=== PATIENT | female | born 1955 | race Caucasian/White ===

== ENCOUNTER 2025-07-28 09:53 | Observation (INO) ==
--- NOTE | 2025-07-28 10:41 | Emergency Department Note ---
Impression & Plan Lumbar back pain with radiculopathy affecting right lower extremity, Ambulatory dysfunction, Lumbar herniated disc ED Provider Note CHIEF COMPLAINT: Right low back pain radiating into the right leg x 2 days HISTORY OF PRESENT ILLNESS: Patient is a 70-year-old female with past medical history significant for hypertension, GERD, anxiety and depression, dyslipidemia, ADD, tardive dyskinesia, cognitive impairment, among other chronic medical problems who presents to the emergency department accompanied by her for evaluation of right back and leg pain. Patient states that she has been having pain in the right hip and buttock, that wraps into the right groin and down the right thigh, and radiates up to the right back. She cannot stand upright and has to bend over. Her right leg sabra when she tries to weight- bear. She rates her pain a 4/10 currently. She has tried Bengay, Excedrin Migraine, Tylenol, ice and heat. She is on meloxicam chronically. She denies any trauma, heavy lifting although reports there was a fall but this was over a month ago. She never had pain like this before. She denies any numbness, tingling, paresthesia down the right leg. There is no bowel or bladder incontinence or saddle anesthesia. REVIEW OF SYSTEMS: Review of systems as per HPI. All other systems reviewed were negative. 10 systems reviewed. PMH: External medical records are reviewed and summarized as above/below. See Problem List. SOCIAL HISTORY: Patient lives at home with her spouse. Retired. An uncomfortable appearing 70-year-old female who is awake and alert PHYSICAL EXAM: Vital Signs: Reviewed Nurse's notes. CONSTITUTIONAL: Patient is an uncomfortable appearing 70-year-old female who is awake and alert and restless on the gurney. CARDIOVASCULAR: Regular rate and rhythm. Peripheral pulses easily palpable. RESPIRATORY: Breath sounds equal and clear to auscultation. ABDOMEN: Bowel sounds are present. Abdomen is soft, nontender and nondistended. INTEGUMENTARY: No lesions or rash, normal skin turgor. LYMPH: No lymphadenopathy. SPINE: Examination of the patient's back does not demonstrate any ecchymosis, abrasions or outward signs of trauma. No erythema, increased warmth or induration. Patient has midline discomfort to palpation over the low lumbar spine, primarily on the right. There is no pain over the SI joint or the sciatic notch. She has increased pain with range of motion including rotation and flexion. EXTREMITIES: Lower extremity exam difficult to assess, as patient refuses to fully extend the right leg onto the gurney. She has pain over the right PSIS, and the right SI joint. She has discomfort in the right groin and over the right greater trochanter. Leg lengths appear to be symmetrical. She has discomfort with logroll. Positive right straight leg raise testing. Unable to assess reflexes well in the right lower extremity due to positioning and guarding. Patellar and Achilles reflexes on the left 2+. Normal strength including dorsi-flexion and plantar flexion of the great toes and ankles and flexion and extension of the knees and flexion of the hips. Distal pulses are easily palpable. Sensation light touch is intact over the lower extremities bilaterally. EMERGENCY DEPARTMENT COURSE: The patient was seen and assessed as above. External medical records are reviewed. She presents to the emergency department for evaluation of fairly acute right-sided low back pain with radiculopathy. She is quite uncomfortable on exam, rolling around on the gurney. IV lock was initiated. She was treated with IV Decadron 10 mg, fentanyl 50 mcg, Toradol 15 mg and ODT Zofran. Lumbar spine CT scan was obtained and per my interpretation in addition to diffuse degenerative disc disease and multilevel facet arthrosis, there is a suspected right foraminal disc protrusion at the L4-L5 level, with moderate right lateral recess and right foraminal narrowing. This likely does not correlate with her right lumbar radiculopathy. The patient was reassessed. CT scan findings reviewed with her. She was given morphine 6 mg IV. On reassessment she did appear more comfortable and was amenable to an ambulatory trial, with a walker. Unfortunately, she was not able to safely ambulate due to pain and inability to weight-bear comfortably on the right leg. Additional morphine 4 mg IV and Tylenol 1000 mg ordered. I did discuss admission/observation with the patient and her spouse and she was agreeable. ED case maker reviewed, and a consultation placed with the [facility] hospitalist service. Patient discussed with Dr. Cintron. Baseline laboratory studies ordered for admission, including CBC with differential, CMP and urinalysis. Laboratory studies per my interpretation note no leukocytosis, anemia or significant electrolyte imbalance. No YAMILA or transaminitis. Urine sample not obtained prior to admission. Differential diagnoses considered included compression fracture, spinal stenosis, disc herniation, lumbar strain, among others. Past Med/Surg History Problem List (Updated 07/28/25 @ 18:15 by Consuelo Newell) Lumbar herniated disc (Acute) Lumbar back pain with radiculopathy affecting right lower extremity (Acute) Ambulatory dysfunction (Acute) Lower back pain Lumbar radiculopathy, acute Ataxia ADD (attention deficit disorder) Tardive dyskinesia Tremor Other symptoms and signs involving cognitive functions and awareness Restless Gallstones History of colon polyps Sensorineural hearing loss (SNHL) of both ears Bilateral tinnitus History of skin cancer removed Prediabetes diet controlled Mild cognitive impairment Rosacea Hyperlipidemia Depression Anxiety Arthritis Acid reflux Hard of hearing Hypertension Medical History Nausea and vomiting after administration of anesthetic agent Hiatal hernia Diverticular disease History of COVID-07 Apr 2022 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) Surgical History History of dilatation and curettage H/O tooth extraction implanted tooth removed 11/2022 History of colonoscopy History of endoscopy History of cataract extraction bilat History of lumpectomy of right breast benign Hx of tonsillectomy Family History Sister Breast cancer x2 Heart disease Hypertension Lung cancer Skin cancer Father Colorectal cancer Myocardial infarction Heart disease Stroke Brother Myocardial infarction Heart disease Hypertension Leukemia Brother Acute leukemia Heart disease Mother Heart disease Skin cancer Aunt Stroke paternal Brain cancer paternal Grandmother (Maternal) Breast cancer Family/Other Breast cancer niece Uncle Throat cancer paternal Other No family history of adverse response to anesthesia No family history of bleeding disorder Denies family history of Ovarian cancer Prostate cancer Social History Smoking Status: Never smoker Second Hand Exposure: No; Do You Dip or Chew Tobacco: No; Tobacco Cessation Education Requested by Patient: No Hx Alcohol Use: No Hx Substance Use: No Preferred Language: Yoruba Communication Ability: Effective Visual Impairment: Partially Limited Hearing Ability: Normal Straw Baler Required: No Beliefs That Will Affect Care: Rastafarian Rastafarian Beliefs: Will not affect care, but she is Bahai/Samaritan marital status: Current Living Situation: Spouse current occupational status: retired current occupation: Retired Teacher How many Children do You have: 1 How many Children do You have Comment: 1 boy Feels Safe at Home: Yes Safety Concerns: Feels Safe At This Time Childhood Exposure to Second-Hand Smoke: No Diet: regular Diet Comment: regular caffeine: Yes during the past year weight has: remained stable Dental Care, Regularly: Yes Physical Activity Frequency: 3-4 Times per Week Physical Activity Frequency Comment: stationary bike Seatbelt Use: always Sunscreen Use: Yes Assistive Devices: Glasses and Hearing Aid - Bilateral Assistive Devices Comment: Hearing aids not present Allergies Allergies Allergy/AdvReac Type Severity Reaction Status Date / Time Sulfa (Sulfonamide Allergy Unknown Rash Verified 07/28/25 14:35 Antibiotics) Home Meds Home Medications Medication Instructions Recorded Confirmed omega [id number]-fish oil 300 1 cap PO QAM 06/23/22 07/28/25 mg-1,000 mg capsule (Fish Oil) ekkyhbys-ags-jklco acid 500 1 tab PO QAM 04/26/23 07/28/25 mcg-lycopene 300 mcg-lutein 250 mcg tablet ([employer]) acetaminophen 325 mg tablet 325 mg PO QID PRN Pain 08/28/23 07/28/25 (Tylenol) sertraline 50 mg tablet 50 mg PO QAM 08/28/23 07/28/25 sertraline 100 mg tablet 100 mg PO QAM 08/14/24 07/28/25 ascorbate calcium (vitamin C) 500 500 mg PO DAILY 12/19/24 07/28/25 mg tablet cholecalciferol (vitamin D3) 25 25 mcg PO DAILY 12/19/24 07/28/25 mcg (1,000 unit) capsule ferrous sulfate 325 mg (65 mg 325 mg PO DAILY 12/19/24 07/28/25 iron) tablet (Feosol) vitamin K2 45 mcg capsule 45 mcg PO DAILY 12/19/24 07/28/25 hydroxyzine HCl 25 mg tablet 25 mg PO TID 04/01/25 07/28/25 dextroamphetamine-amphetamine 10 10 mg PO BID 07/03/25 07/28/25 mg tablet buspirone 15 mg tablet 15 mg PO BID 07/28/25 07/28/25 Previous Rx's Medication Instructions Recorded magnesium oxide 400 mg PO QAM #90 caps 03/13/25 omeprazole 20 mg capsule,delayed 20 mg PO QAM #90 caps 05/05/25 release amlodipine 10 mg tablet 10 mg PO HS #90 tabs 06/02/25 meloxicam 15 mg tablet 15 mg PO QAM #90 tabs 06/09/25 rosuvastatin 10 mg tablet 10 mg PO HS 100 days #90 tabs 06/19/25 ropinirole 0.5 mg tablet 0.5 mg PO TID #90 tabs 07/03/25 Results & Data (ED) Vital Signs Vital Signs - 24 hr 07/28/25 10:10 07/28/25 11:18 07/28/25 13:00 Temperature 36.4 C L Temperature Source Temporal Artery Scan Pulse Rate 88 Pulse Rate [Left Finger] 87 89 Pulse Rhythm [Left Finger] Regular Pulse Strength [Left Finger] Normal Respiratory Rate 20 20 16 Respiratory Effort / Characteristics Non-Labored Spontaneous Non-Labored Spontaneous Respiratory Depth Normal Normal Respiratory Pattern Regular Blood Pressure 124/77 Blood Pressure [Right Arm] 143/83 H 134/94 Blood Pressure Mean 92 Blood Pressure Mean [Right Arm] 103 107 Blood Pressure Position [Right Arm] Sitting Pulse Oximetry 100 93 91 Oxygen Delivery Method Room Air Room Air Room Air Sepsis Recent Fever Within 48 Hours No Sepsis New/Unexplained Change in Mental Status N/A Sepsis Action Taken by Nursing No Action Required 07/28/25 13:20 07/28/25 14:00 Temperature Temperature Source Pulse Rate 84 Pulse Rate [Left Finger] 94 H Pulse Rhythm [Left Finger] Pulse Strength [Left Finger] Respiratory Rate 18 Respiratory Effort / Characteristics Non-Labored Spontaneous Respiratory Depth Normal Respiratory Pattern Regular Blood Pressure Blood Pressure [Right Arm] 102/72 Blood Pressure Mean Blood Pressure Mean [Right Arm] 82 Blood Pressure Position [Right Arm] Semi-fowlers Pulse Oximetry 93 Oxygen Delivery Method Room Air Sepsis Recent Fever Within 48 Hours Sepsis New/Unexplained Change in Mental Status Sepsis Action Taken by Intermediate Medications Current Medication List: was personally reviewed by me Laboratory Data Attestation: I reviewed the patient's lab results. 07/28/25 14:12 07/28/25 14:12 Administered Medications Amphetamine/Dextroamphetamine (Dextroamphetamine/Amphetamine Ir 10 Mg Tab) 10 mg PO BID@0800,1500 ZENAIDA Stop: 08/11/25 17:14 Last Admin: 07/28/25 17:25 Dose: Not Given Documented By: DONOVAN Discontinued Medications Dexamethasone Sodium Phosphate (DexamethasonePf 10 Mg/Ml Vial) 10 mg IV NOW ONE Stop: 07/28/25 10:39 Last Admin: 07/28/25 10:56 Dose: 10 mg Documented By: ANT Fentanyl Citrate (Fentanyl Citrate Pf 100 Mcg/2 Ml Vial) 50 mcg IV NOW STA Stop: 07/28/25 10:39 Last Admin: 07/28/25 10:56 Dose: 50 mcg Documented By: ANT Acetaminophen (Ofirmev) 1,000 mg in 100 mls @ 400 mls/hr IV NOW STA Stop: 07/28/25 13:45 Last Infusion: 07/28/25 14:09 Dose: Infused Documented By: Admin: 07/28/25 13:41 Dose: 400 mls/hr Documented By: APRIL Ketorolac Tromethamine (Ketorolac Tromethamine 15 Mg/Ml Vial) 15 mg IV NOW STA Stop: 07/28/25 10:39 Last Admin: 07/28/25 10:55 Dose: 15 mg Documented By: ANT Morphine Sulfate (Morphine Sulfate 10 Mg/Ml Carp/Vial) 6 mg IV NOW STA Stop: 07/28/25 12:27 Last Admin: 07/28/25 12:31 Dose: 6 mg Documented By: JORDAN Morphine Sulfate (Morphine Sulfate 4 Mg/Ml 1 Ml Carp\Vial) 4 mg IV NOW STA Stop: 07/28/25 13:32 Last Admin: 07/28/25 13:38 Dose: 4 mg Documented By: APRIL Ondansetron HCl (Ondansetron 4 Mg Od Tab) 4 mg PO NOW STA Stop: 07/28/25 10:39 Last Admin: 07/28/25 10:56 Dose: 4 mg Documented By: ANT Imaging Data Attestation: I personally reviewed and interpreted this imaging study as follows: Radiologist's Impression: Lumbar Spine CT 07/28/25 10:38 CT OF THE LUMBAR SPINE CLINICAL HISTORY: RIGHT LBP RADIATING INTO RIGHT THIGH COMPARISON STUDY: No previous studies for comparison. TECHNIQUE: Helical axial images of the lumbar spine were obtained. Sagittal and coronal reconstructions were viewed. Automated exposure control was utilized for the study. A dose lowering technique was utilized adhering to the principles of ALARA. FINDINGS: For purposes of numbering on this exam, the L5-S1 disc space is assigned to axial image 311 of 362. Alignment of the lumbar spine is anatomic. Vertebral body heights are maintained. There are no fractures. There are no suspicious osseous lesions. Paravertebral soft tissues are unremarkable. The central canal and neural foramen are suboptimally assessed given CT technique. There is severe disc space narrowing at L5-S1. Moderate multilevel facet arthrosis is present. There are disc bulges at multiple levels. L1-L2: The central canal and neural foramen are patent. L2-L3: The central canal and neural foramen are patent. L3-L4: There is mild disc bulge. There is mild facet arthrosis with ligamentous hypertrophy. There is mild narrowing of the central canal and neural foramen. L4-L5: There is mild disc space narrowing with disc bulge. There is facet arthrosis with ligamentous hypertrophy. There is suspected mild central canal stenosis. A suspected right foraminal disc protrusion is present. There is moderate narrowing of the right lateral recess and right neural foramen. The left neural foramen is patent. L5-S1: There is severe disc space narrowing. Posterior disc osteophyte complex is present. There is facet arthrosis. There is no central canal stenosis. There is mild bilateral neural foraminal stenosis. IMPRESSION: 1. No acute lumbar spine fracture or subluxation. 2. Mild degenerative disc disease and moderate multilevel facet arthrosis within the lumbar spine. Suboptimal evaluation of the central canal and neural foramen given CT technique. No evidence for severe central canal stenosis. 3. Suspected right foraminal disc protrusion at L4-L5 which results in moderate of the right lateral recess and right neural foramen. This could be correlated with right L4/L5 radiculopathy. ACT 112: Negative or not required by law. Electronically signed by: Jorge Santos M.D. 07/28/2025 11:41 AM Discharge Plan Visit Data Chief Complaint: Back Injury/Pain Stated Complaint: BACK/HIP PAIN ED Provider: Ozzie Baig ED Midlevel Provider: Consuelo Newell Discharge Problem: Lumbar back pain with radiculopathy affecting right lower extremity, Ambulatory dysfunction, Lumbar herniated disc Patient Disposition: Admitted As Inpatient Condition: Fair Discharge Instructions Interventions: ED Discharge Assessment Last Done: 07/28/25 15:48
[2025-07-28] MEDS: KETOROLAC TROMETHAMINE 15 MG/ML VIAL IV STA (10:55)
[2025-07-28] MEDS: ONDANSETRON 4 MG OD TAB PO STA (10:56)
[2025-07-28] MEDS: dexAMETHasone**PF** 10 MG/ML VIAL IV ONE (10:56)
--- NOTE | 2025-07-28 11:43 | CT Scan Report ---
CT OF THE LUMBAR SPINE CLINICAL HISTORY: RIGHT LBP RADIATING INTO RIGHT THIGH COMPARISON STUDY: No previous studies for comparison. TECHNIQUE: Helical axial images of the lumbar spine were obtained. Sagittal and coronal reconstruct ions were viewed. Automated exposure control was utilized for the study. A dose lowering technique was utilized adhering to the principles of ALARA. FINDINGS: For purposes of numbering on this exam, the L5-S1 disc space is assigned to axial image 311 of 362. Alignment of the lumbar spine is anatomic. Vertebral body heights are maintained. There are no fractures. There are no suspicious osseous lesions. Paravertebral soft tissues are unremarkable. T he central canal and neural foramen are suboptimally assessed given CT technique. There is severe dis c space narrowing at L5-S1. Moderate multilevel facet arthrosis is present. There are disc bulges at multiple levels. L1-L2: The central canal and neural foramen are patent. L2-L3: The central canal and neural foramen are patent. L3-L4: There is mild disc bulge. There is mild facet arthrosis with ligamentous hypertrophy. There is mild narrowing of the central canal and neural foramen. L4-L5: There is mild disc space narrowing with disc bulge. There is facet arthrosis with ligamentous hypertrophy. There is suspected mild central canal stenosis. A suspected right foraminal disc protrus ion is present. There is moderate narrowing of the right lateral recess and right neural foramen. The left neural foramen is patent. L5-S1: There is severe disc space narrowing. Posterior disc osteophyte complex is present. There is f acet arthrosis. There is no central canal stenosis. There is mild bilateral neural foraminal stenosis . IMPRESSION: 1. No acute lumbar spine fracture or subluxation. 2. Mild degenerative disc disease and moderate multilevel facet arthrosis within the lumbar spine. Villavicencio boptimal evaluation of the central canal and neural foramen given CT technique. No evidence for sever e central canal stenosis. 3. Suspected right foraminal disc protrusion at L4-L5 which results in moderate of the right lateral recess and right neural foramen. This could be correlated with right L4/L5 radiculopathy. ACT 112: Negative or not required by law. Electronically signed by: Jorge Santos M.D. 07/28/2025 11:41 AM
[2025-07-28] MEDS: MoRPHine SULFATE 10 MG/ML CARP/VIAL IV STA (12:31)
--- NOTE | 2025-07-28 13:32 | Emergency Department Note ---
ED Visit Note I was consulted by the Advanced Practice Provider, Katlyn Newell PA-C. I personally made/approved the management plan and take responsibility for the patient management. I performed a substantive portion of the visit. This includes the aspects of: -History/Physical/Personally seeing the patient -MDM .
[2025-07-28] MEDS: MoRPHine SULFATE 4 MG/ML 1 ML CARP\\VIAL IV STA (13:38)
[2025-07-28] MEDS: ACETAMINOPHEN 1,000 MG/100 ML VIAL IV STA (13:41)
--- NOTE | 2025-07-28 14:07 | History & Physical Report ---
Date of Service July 28, 2025 Assessment & Plan (1) Lumbar radiculopathy, acute: (2) Lower back pain: (3) Ambulatory dysfunction: (4) Tardive dyskinesia: Plan This patient is a 70-year-old female with a history of tardive dyskinesia, MCI, ADD, depression/anxiety, GERD, HTN, HLD, who presents with acute onset of right lower back pain radiating down the right lower extremity to the right thigh/knee that came on 3 days ago and got much worse in the last day. She has not been able to stand upright. Bending over makes it better. Her right lower extremity has been buckling when she tries to weight-bear but she is able to move the leg. At home she tried Bengay, Excedrin Migraine, Tylenol, ice, and heat. She takes meloxicam chronically anyway. She did have a fall over 1 month ago. No bowel or bladder issues, no numbness tingling or paresthesias down the right lower e xtremity. In the ED, she received IV Decadron, IV fentanyl, IV Toradol, and IV morphine as well as IV Tylenol and Zofran for nausea. She was still unable to ambulate after this pain control and will be admitted for intractable lumbar radiculopathy pain with ambulatory dysfunction. #Acute lumbar radiculopathy/intractable right sided lower back pain/ambulatory dysfunction-failed outpatient treatment and requiring multiple different pain medications in the ED without improvement thus far. CT lumbar spine with HNP L4-L5 which could be the cause of her symptoms - Admit to medical/surgical unit - Continue IV Decadron 6 mg IV 3 times daily - Continue Tylenol 1000 mg p.o. 3 times daily scheduled, home meloxicam 15 mg p.o. daily, and add IV Dilaudid for breakthrough pain - Zofran as needed for nausea and continue PPI while on NSAIDs and steroids for GI protection - Consult orthopedic spine surgery for further evaluation and consider getting MRI lumbar spine if needed - PT/OT consults to be placed to evaluate ambulatory dysfunction #Tardive dyskinesia no acute issues, follows with neurology - Continue home ropinirole #Depression/anxiety/ADD/MCI-has evaluation planned for neuropsychology 6 months from now. Follows with psychiatry - Continue home BuSpar, hydroxyzine, sertraline, and Adderall #HTN/HLD-no acute issues - Continue home amlodipine, rosuvastatin, and hold home fish oil, co-Q10 #GERD-no acute issues - Continue PPI DVT prophylaxis-SCDs Disposition-admit to medical/surgical floor History of Present Illness Chief Complaint: Back pain/leg pain Primary Care Provider: BETHANY Li This patient is a 70-year-old female with a history of tardive dyskinesia, MCI, ADD, depression/anxiety, GERD, HTN, HLD, who presents with acute onset of right lower back pain radiating down the right lower extremity to the right thigh/knee that came on 3 days ago and got much worse in the last day. She has not been able to stand upright. Bending over makes it better. Her right lower extremity has been buckling when she tries to weight-bear but she is able to move the leg. At home she tried Bengay, Excedrin Migraine, Tylenol, ice, and heat. She takes meloxicam chronically anyway. She did have a fall over 1 month ago. No bowel or bladder issues, no numbness tingling or paresthesias down the right lower extremity. In the ED, she received IV Decadron, IV fentanyl, IV Toradol, and IV morphine as well as IV Tylenol and Zofran for nausea. She was still unable to ambulate after this pain control and will be admitted for intractable lumbar radiculopathy pain with ambulatory dysfunction. Allergies Allergy/AdvReac Type Severity Reaction Status Date / Time Sulfa (Sulfonamide Allergy Unknown Rash Verified 07/28/25 14:35 Antibiotics) Home Medications Medication Instructions Recorded Confirmed Type omega 9-dgm-kin-fish oil 300 1 cap PO QAM 06/23/22 07/28/25 History mg-1,000 mg capsule (Fish Oil) bsfhygzq-afk-kiwtp acid 500 1 tab PO QAM 04/26/23 07/28/25 History mcg-lycopene 300 mcg-lutein 250 mcg tablet ([employer]) acetaminophen 325 mg tablet 325 mg PO QID PRN Pain 08/28/23 07/28/25 History (Tylenol) sertraline 50 mg tablet 50 mg PO QAM 08/28/23 07/28/25 History sertraline 100 mg tablet 100 mg PO QAM 08/14/24 07/28/25 History ascorbate calcium (vitamin C) 500 500 mg PO DAILY 12/19/24 07/28/25 History mg tablet cholecalciferol (vitamin D3) 25 25 mcg PO DAILY 12/19/24 07/28/25 History mcg (1,000 unit) capsule ferrous sulfate 325 mg (65 mg 325 mg PO DAILY 12/19/24 07/28/25 History iron) tablet (Feosol) vitamin K2 45 mcg capsule 45 mcg PO DAILY 12/19/24 07/28/25 History magnesium oxide 400 mg PO QAM #90 caps 03/13/25 07/28/25 Rx hydroxyzine HCl 25 mg tablet 25 mg PO TID 04/01/25 07/28/25 History omeprazole 20 mg capsule,delayed 20 mg PO QAM #90 caps 05/05/25 07/28/25 Rx release amlodipine 10 mg tablet 10 mg PO HS #90 tabs 06/02/25 07/28/25 Rx meloxicam 15 mg tablet 15 mg PO QAM #90 tabs 06/09/25 07/28/25 Rx rosuvastatin 10 mg tablet 10 mg PO HS 100 days #90 tabs 06/19/25 07/28/25 Rx dextroamphetamine-amphetamine 10 10 mg PO BID 07/03/25 07/28/25 History mg tablet ropinirole 0.5 mg tablet 0.5 mg PO TID #90 tabs 07/03/25 07/28/25 Rx buspirone 15 mg tablet 15 mg PO BID 07/28/25 07/28/25 History Past Med/Surg History Problem List (Updated 07/28/25 @ 13:59 by Alexia Cintron MD) Ambulatory dysfunction Lower back pain Lumbar radiculopathy, acute Ataxia ADD (attention deficit disorder) Tardive dyskinesia Tremor Other symptoms and signs involving cognitive functions and awareness Restless Gallstones History of colon polyps Sensorineural hearing loss (SNHL) of both ears Bilateral tinnitus History of skin cancer removed Prediabetes diet controlled Mild cognitive impairment Rosacea Hyperlipidemia Depression Anxiety Arthritis Acid reflux Hard of hearing Hypertension Medical History Nausea and vomiting after administration of anesthetic agent Hiatal hernia Diverticular disease History of COVID-07 Apr 2022 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) Surgical History History of dilatation and curettage H/O tooth extraction implanted tooth removed 11/2022 History of colonoscopy History of endoscopy History of cataract extraction bilat History of lumpectomy of right breast benign Hx of tonsillectomy Family History Sister Breast cancer x2 Heart disease Hypertension Lung cancer Skin cancer Father Colorectal cancer Myocardial infarction Heart disease Stroke Brother Myocardial infarction Heart disease Hypertension Leukemia Brother Acute leukemia Heart disease Mother Heart disease Skin cancer Aunt Stroke paternal Brain cancer paternal Grandmother (Maternal) Breast cancer Family/Other Breast cancer niece Uncle Throat cancer paternal Other No family history of adverse response to anesthesia No family history of bleeding disorder Denies family history of Ovarian cancer Prostate cancer Social History Smoking Status: Never smoker Second Hand Exposure: No; Do You Dip or Chew Tobacco: No; Hx Alcohol Use: No Hx Substance Use: No Preferred Language: Chilean Communication Ability: Effective Visual Impairment: Partially Limited Hearing Ability: Normal Solar Project Coordination Specialist Required: No Beliefs That Will Affect Care: None marital status: Current Living Situation: Spouse current occupational status: retired current occupation: Retired Teacher How many Children do You have: 1 How many Children do You have Comment: 1 boy Feels Safe at Home: Yes Childhood Exposure to Second-Hand Smoke: No Diet: regular Diet Comment: regular caffeine: Yes during the past year weight has: remained stable Dental Care, Regularly: Yes Physical Activity Frequency: 3-4 Times per Week Physical Activity Frequency Comment: stationary bike Seatbelt Use: always Sunscreen Use: Yes Assistive Devices: Glasses and Hearing Aid - Bilateral Review of Systems Review of Systems: All systems reviewed & are unremarkable except as noted in HPI & below She denies fevers or chills, no headaches or lightheadedness, no chest pain or shortness of breath, no nausea/vomiting, no abdominal pain, no constipation or diarrhea Physical Exam Constitutional: WD/WN, vitals as above Eyes: PERRL, conjunctivae normal, anicteric sclerae ENMT: external ear and nose normal, oropharynx normal Neck: trachea midline, no thyromegaly Respiratory: normal respiratory effort, lungs clear to auscultation Cardiovascular: RRR, no murmur, no edema Chest (Breasts): Chest: normal inspection of chest Gastrointestinal (Abdomen): normal bowel sounds, soft, nontender, no hepatosplenomegaly Musculoskeletal: Extremities: extremities normal to inspection; no cyanosis and no clubbing Skin: no rashes, warm and dry Neurologic: moves all extremities and awake; no focal motor deficits Motor/Sensory: + abnormal movement (Has frequent jerking movements of upper and lower extremities and head) Negative straight leg raise on the right 5/5 strength throughout bilateral lower extremities DTR absent right patella and 2+ on left patellar Sensation intact to light touch throughout lower extremities bilaterally Psychiatric: A+Ox3, euthymic affect Lymphatic: no lymphedema Results & Data Results & Data Vital Signs (Past 12 Hours) Vital Signs Temp Pulse Pulse Resp BP BP Pulse Ox 07/28/25 13:20 84 07/28/25 13:00 89 16 134/94 91 07/28/25 11:18 87 20 143/83 H 93 07/28/25 10:10 36.4 C L 88 20 124/77 100 O2 Del Method 07/28/25 13:20 07/28/25 13:00 Room Air 07/28/25 11:18 Room Air 07/28/25 10:10 Room Air Laboratory Results CBC, BMP, LFTs reviewed Diagnostic Findings Lumbar Spine CT 07/28/25 10:38 CT OF THE LUMBAR SPINE CLINICAL HISTORY: RIGHT LBP RADIATING INTO RIGHT THIGH COMPARISON STUDY: No previous studies for comparison. TECHNIQUE: Helical axial images of the lumbar spine were obtained. Sagittal and coronal reconstructions were viewed. Automated exposure control was utilized for the study. A dose lowering technique was utilized adhering to the principles of ALARA. FINDINGS: For purposes of numbering on this exam, the L5-S1 disc space is assigned to axial image 311 of 362. Alignment of the lumbar spine is anatomic. Vertebral body heights are maintained. There are no fractures. There are no suspicious osseous lesions. Paravertebral soft tissues are unremarkable. The central canal and neural foramen are suboptimally assessed given CT technique. There is severe disc space narrowing at L5-S1. Moderate multilevel facet arthrosis is present. There are disc bulges at multiple levels. L1-L2: The central canal and neural foramen are patent. L2-L3: The central canal and neural foramen are patent. L3-L4: There is mild disc bulge. There is mild facet arthrosis with ligamentous hypertrophy. There is mild narrowing of the central canal and neural foramen. L4-L5: There is mild disc space narrowing with disc bulge. There is facet arthrosis with ligamentous hypertrophy. There is suspected mild central canal stenosis. A suspected right foraminal disc protrusion is present. There is moderate narrowing of the right lateral recess and right neural foramen. The left neural foramen is patent. L5-S1: There is severe disc space narrowing. Posterior disc osteophyte complex is present. There is facet arthrosis. There is no central canal stenosis. There is mild bilateral neural foraminal stenosis. IMPRESSION: 1. No acute lumbar spine fracture or subluxation. 2. Mild degenerative disc disease and moderate multilevel facet arthrosis within the lumbar spine. Suboptimal evaluation of the central canal and neural foramen given CT technique. No evidence for severe central canal stenosis. 3. Suspected right foraminal disc protrusion at L4-L5 which results in moderate of the right lateral recess and right neural foramen. This could be correlated with right L4/L5 radiculopathy. Code Status & VTE Plan Code Status DNR/DNI VTE Prophylaxis Plan VTE Prophylaxis will be ordered: Yes PG Care Time/CCT Total # of Minutes Spent Total Time Spent with Patient: Total time spent is greater than 50% in coordination of care (as documented) at patient's floor/unit and/or counseling patient: Coding Level of Care Code 93981 INT INP/OBS CARE 3/75MIN Diagnoses Lumbar radiculopathy, acute M54.16 Lower back pain M54.50 Ambulatory dysfunction R26.2 Tardive dyskinesia G24.01
[2025-07-28 14:36] LABS: Hematocrit (blood only) 42.5 % (37.0-47.0); Hemoglobin 14.7 g/dl (12.0-16.0); Immature Granulocytes # (auto) 0.03 K/uL (0.01-0.20); Immature Granulocytes % (auto) 0.3 %; Mean Corpuscular Hemoglobin 30.5 pg (25.0-34.0); Mean Corpuscular Volume 88.2 fL (80.0-100.0); Platelet Count 299 K/uL (130-400); RDW Standard Deviation 42.5 fL (36.4-46.3); Red Blood Count 4.82 M/uL (4.20-5.40); White Blood Count 9.36 K/ul (4.8-10.8)
[2025-07-28 14:46] LABS: Alanine Aminotransferase 29.0 U/L (7-52); Albumin Globulin Ratio 1.7 (0.9-2); Albumin Level 4.3 gm/dl (3.4-5.0); Alkaline Phosphatase 90.0 U/L (34-104); Anion Gap 8.0 (3-11); Bilirubin,Total 0.6 mg/dl (0.2-1.0); Blood Urea Nitrogen 11.0 mg/dl (6-23); Calcium 9.3 mg/dl (8.6-10.3); Carbon Dioxide 23.0 mmol/L (21-32); Chloride 107.0 mmol/L (98-107); Creatinine Clr Calc Pharmacy 66.0 ml/min; Globulin 2.6 gm/dl (2.5-4.0); Glucose 128.0 mg/dl (70-99(Fasting)); Potassium 4.2 mmol/L (3.5-5.1); Sodium 138.0 mmol/L (136-145); Total Protein 6.9 gm/dl (6.0-8.3)
[2025-07-28] MEDS ORDERED: ONDANSETRON INJ 2 MG/ML 2 ML VIAL IV PRN (15:47)
[2025-07-28] MEDS ORDERED: HYDROmorphone INJ 0.5 MG/0.5 ML SYR IV PRN (15:47)
[2025-07-28] MEDS ORDERED: dexAMETHasone 6 MG in SYRINGE 0 ML IV SCH (16:00)
[2025-07-28] MEDS: DEXTROAMPHETAMINE/AMPHETAMINE IR 10 MG TAB PO SCH (17:25)
[2025-07-28] MEDS: dexAMETHasone 6 MG in SYRINGE 0 ML IV SCH (18:27)
[2025-07-28] MEDS: HYDROmorphone INJ 0.5 MG/0.5 ML SYR IV PRN (18:27)
[2025-07-28] MEDS: ACETAMINOPHEN 500 MG TAB PO SCH (20:50)
[2025-07-28] MEDS: busPIRone 5 MG TAB PO SCH (20:50)
[2025-07-28] MEDS: ROSUVASTATIN CALCIUM 10 MG TAB PO SCH (20:50)
[2025-07-28 22:49] LABS: Appearance Urine Clear (Clear); Glucose Urine UA Negative (Negative)
[2025-07-28 23:00] LABS: Bacteria Urine Automated None Seen (None Seen); Cast Urine Automated 0-2 /lpf (0-2); Epithelial Cell Urine Auto 0-2 /hpf (0-2); RBC Urine Automated 0-2 /hpf (0-2)
[2025-07-29] MEDS: MELOXICAM 7.5 MG TAB PO SCH (08:13)
[2025-07-29] MEDS: MAGNESIUM OXIDE 400 MG TAB PO SCH (08:13)
[2025-07-29] MEDS: SERTRALINE HCL 50 MG TABLET PO SCH (08:14)
[2025-07-29] MEDS: SERTRALINE HCL 100 MG TABLET PO SCH (08:14)
--- NOTE | 2025-07-29 14:13 | Hospitalist Progress Note ---
Date of Service July 29, 2025 Assessment & Plan (1) Lumbar radiculopathy, acute: (2) Lower back pain: (3) Ambulatory dysfunction: (4) Tardive dyskinesia: Plan This patient is a 70-year-old female with a history of tardive dyskinesia, MCI, ADD, depression/anxiety, GERD, HTN, HLD, who is admitted with intractable pain from acute lumbar radiculopathy pain with ambulatory dysfunction. #Acute lumbar radiculopathy/intractable right sided lower back pain/ambulatory dysfunction-failed outpatient treatment and continues to be without improvement thus far despite parenteral steroids and opioids, NSAIDs, APAP. CT lumbar spine with HNP L4-L5 which could be the cause of her symptoms. MRI L-spine and Ortho SPine consult pending - Continue IV Decadron 6 mg IV 3 times daily - Continue Tylenol 1000 mg p.o. 3 times daily scheduled, home meloxicam 15 mg p .o. daily, and IV Dilaudid for breakthrough pain; add on oxycodon e5-10mg po q4h prn mod-severe pain -considered gabapentin but may worsen her tardive dyskinesia - Zofran as needed for nausea and continue PPI while on NSAIDs and steroids for GI protection - Consult orthopedic spine surgery for further evaluation pending - PT/OT consults to be placed to evaluate ambulatory dysfunction #Tardive dyskinesia no acute issues, follows with neurology - Continue home ropinirole #Depression/anxiety/ADD/MCI-has evaluation planned for neuropsychology 6 months from now. Follows with psychiatry - Continue home BuSpar, hydroxyzine, sertraline, and Adderall #HTN/HLD-no acute issues - Continue home amlodipine, rosuvastatin, and hold home fish oil, co-Q10 #GERD-no acute issues - Continue PPI DVT prophylaxis-SCDs Disposition-continued stay on medical/surgical floor Admission and Anticipated Discharge Date Admission Date: July 28, 2025 Subjective Pt continues to have severe pain down RLE to the knee, mostly worse with lying flat for MRI earlier and better with sitting up. Physical Exam Constitutional: WD/WN, vitals as above Neck: trachea midline, no thyromegaly Respiratory: normal respiratory effort, lungs clear to auscultation Cardiovascular: RRR, no murmur, no edema Musculoskeletal: Extremities: extremities normal to inspection; no cyanosis and no clubbing Skin: no rashes, warm and dry Neurologic: moves all extremities and awake; no focal motor deficits Motor/Sensory: + abnormal movement (Has frequent jerking movements of upper and lower extremities and head) Psychiatric: A+Ox3, euthymic affect Lymphatic: no lymphedema Results & Data Results & Data Vital Signs (Past 12 Hours) Vital Signs Temp Pulse Resp BP Pulse Ox O2 Del Method 07/29/25 07:43 37.0 C 98 H 18 115/63 92 Room Air Laboratory Results Ua reviewed Diagnostic Findings MRI Lumbar spine reviewed pictures but Rad read not done yet PG Care Time/CCT Total # of Minutes Spent Total Time Spent with Patient: Total time spent is greater than 50% in coordination of care (as documented) at patient's floor/unit and/or counseling patient: Coding Level of Care Code 78291 SUB INP/OBS CARE 2/35MIN Diagnoses Lumbar radiculopathy, acute M54.16 Lower back pain M54.50 Ambulatory dysfunction R26.2 Tardive dyskinesia G24.01
--- NOTE | 2025-07-29 14:16 | Magnetic Resonance Report ---
MR lumbar spine wo con CLINICAL HISTORY: 70 years-old Female with back and leg pain. Chronic low back pain COMPARISON: CT lumbar spine 07/28/2025 TECHNIQUE: Multiplanar, multi sequence MRI of the lumbar spine was performed without intravenous cont rast. FINDINGS: Motion degraded exam. The lumbar alignment is normal. The vertebral body heights are normal. There is no T1 fracture line or marrow replacement process. The conus terminates at L1-L2. The visualized spinal cord and cauda equina are normal. There is no paraspinal edema, mass, or prevertebral fluid collection. Colonic diverticulosis. Mostly mild multilevel intervertebral disc space narrowing and s pondylotic spurring with mild to moderate facet arthrosis. T12-L1: No central canal or neural foraminal stenosis. L1-L2: No central canal or neural foraminal stenosis. L2-L3: No central canal or neural foraminal stenosis. L3-L4: Mild intervertebral disc space narrowing and circumferential annular disc bulge and mild spon dylitic spurring. Ligamentum flavum thickening with trace facet effusions and mild to moderate facet arthrosis. Mild central canal stenosis with AP dimension of the thecal sac measuring 9 mm. The right neural foramen is patent. Mild left neural foraminal stenosis. L4-L5: Mild intervertebral disc space narrowing with circumferential annular disc bulge and mild spo ndylitic spurring. Ligament of thickening with moderate facet arthrosis. 8 x 5 x 7 mm ill-defined T1 and T2 hypointense structure within the right neural foramen, image 20 series 7 with superior migrati on on image 6 series 2 is suggestive of a disc extrusion contributing to cause moderate right foramin al narrowing. Mild central canal stenosis, AP dimension of the thecal sac measuring 9 mm. Mild left n eural foraminal narrowing. L5-S1: Moderate intervertebral disc space narrowing with small circumferential disc osteophyte compl ex and moderate facet arthrosis. 1.3 x 0.4 cm central disc osteophyte complex on image 29 series 7. M ild bilateral neural foraminal stenosis. IMPRESSION: 1. Motion degraded exam without acute fracture or bone marrow edema. 2. Probable disc extrusion within the right neural foramen at L4-L5, correlating with the abnormality seen on comparison CT causing moderate associated foraminal stenosis. 3. Mild central canal stenosis at L3-L4 and L4-L5. ACT 112: Negative or not required by law. The above report was generated using voice recognition software. It may contain grammatical, syntax o r spelling errors. Electronically signed by: Morgan Portillo M.D. 07/29/2025 2:14 PM
--- NOTE | 2025-07-30 09:29 | Consultation ---
Date of Consultation July 30, 2025 Assessment & Plan (1) Lumbar herniated disc: Dr. Rodríguez has reviewed imaging as well as treatment plan. We are hoping to manage this conservatively and avoid any type of surgical intervention. Patient agrees with this. We will therefore consult pain management to discuss pursuing injection at the L4-5 on the right level. All questions were answered with the patient and her . History of Present Illness Attending Physician: Alexia Cintron MD History of Present Illness Kasia is a pleasant 70-year-old female who started with an acute onset of back and right leg pain on July 27. No specific accident, trauma, fall. She was unable to weight-bear because of the pain. Typically she ambulates independently. She presented to the ER on July 28 with for subsequent admission and pain control. She still reports pain to be a 10 out of 10. And involves the right lumbar region down the buttock, groin, anterior thigh and numbness distally to the knee. Left leg is asymptomatic. All positions are provocative of her pain. Nothing is really comfortable. Denies bowel or bladder dysfunction. Denies perineum numbness. Allergies Allergy/AdvReac Type Severity Reaction Status Date / Time Sulfa (Sulfonamide Allergy Unknown Rash Verified 07/28/25 14:35 Antibiotics) Home Medications Medication Instructions Recorded Confirmed Type omega 0-lfh-fas-fish oil 300 1 cap PO QAM 06/23/22 07/28/25 History mg-1,000 mg capsule (Fish Oil) obgykrbg-gyf-hvwiy acid 500 1 tab PO QAM 04/26/23 07/28/25 History mcg-lycopene 300 mcg-lutein 250 mcg tablet (S[employer]) acetaminophen 325 mg tablet 325 mg PO QID PRN Pain 08/28/23 07/28/25 History (Tylenol) sertraline 50 mg tablet 50 mg PO QAM 08/28/23 07/28/25 History sertraline 100 mg tablet 100 mg PO QAM 08/14/24 07/28/25 History ascorbate calcium (vitamin C) 500 500 mg PO DAILY 12/19/24 07/28/25 History mg tablet cholecalciferol (vitamin D3) 25 25 mcg PO DAILY 12/19/24 07/28/25 History mcg (1,000 unit) capsule ferrous sulfate 325 mg (65 mg 325 mg PO DAILY 12/19/24 07/28/25 History iron) tablet (Feosol) vitamin K2 45 mcg capsule 45 mcg PO DAILY 12/19/24 07/28/25 History magnesium oxide 400 mg PO QAM #90 caps 03/13/25 07/28/25 Rx hydroxyzine HCl 25 mg tablet 25 mg PO TID 04/01/25 07/28/25 History omeprazole 20 mg capsule,delayed 20 mg PO QAM #90 caps 05/05/25 07/28/25 Rx release amlodipine 10 mg tablet 10 mg PO HS #90 tabs 06/02/25 07/28/25 Rx meloxicam 15 mg tablet 15 mg PO QAM #90 tabs 06/09/25 07/28/25 Rx rosuvastatin 10 mg tablet 10 mg PO HS 100 days #90 tabs 06/19/25 07/28/25 Rx dextroamphetamine-amphetamine 10 10 mg PO BID 07/03/25 07/28/25 History mg tablet ropinirole 0.5 mg tablet 0.5 mg PO TID #90 tabs 07/03/25 07/28/25 Rx buspirone 15 mg tablet 15 mg PO BID 07/28/25 07/28/25 History Patient History Medical History Nausea and vomiting after administration of anesthetic agent Hiatal hernia Diverticular disease History of COVID-07 Apr 2022 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) Surgical History History of dilatation and curettage H/O tooth extraction implanted tooth removed 11/2022 History of colonoscopy History of endoscopy History of cataract extraction bilat History of lumpectomy of right breast benign Hx of tonsillectomy Family History Sister Breast cancer x2 Heart disease Hypertension Lung cancer Skin cancer Father Colorectal cancer Myocardial infarction Heart disease Stroke Brother Myocardial infarction Heart disease Hypertension Leukemia Brother Acute leukemia Heart disease Mother Heart disease Skin cancer Aunt Stroke paternal Brain cancer paternal Grandmother (Maternal) Breast cancer Family/Other Breast cancer niece Uncle Throat cancer paternal Other No family history of adverse response to anesthesia No family history of bleeding disorder Denies family history of Ovarian cancer Prostate cancer Social History Smoking Status: Never smoker Second Hand Exposure: No; Do You Dip or Chew Tobacco: No; Tobacco Cessation Education Requested by Patient: No Hx Alcohol Use: No Hx Substance Use: No Preferred Language: American Communication Ability: Effective Visual Impairment: Partially Limited Hearing Ability: Normal Reverberatory Skimmer Required: No Beliefs That Will Affect Care: Sabianist Sabianist Beliefs: Will not affect care, but she is Orthodox/Mandaeism marital status: Current Living Situation: Spouse current occupational status: retired current occupation: Retired Teacher How many Children do You have: 1 How many Children do You have Comment: 1 boy Feels Safe at Home: Yes Safety Concerns: Feels Safe At This Time Childhood Exposure to Second-Hand Smoke: No Diet: regular Diet Comment: regular caffeine: Yes during the past year weight has: remained stable Dental Care, Regularly: Yes Physical Activity Frequency: 3-4 Times per Week Physical Activity Frequency Comment: stationary bike Seatbelt Use: always Sunscreen Use: Yes Assistive Devices: None Assistive Devices Comment: Hearing aids not present Review of Systems Review of Systems: All systems reviewed & are unremarkable except as noted in HPI & below Physical Exam Physical Exam: She is sitting on the edge of the bed eating breakfast in no acute distress cooperative with exam Seen in conjunction with her she is nontender to portion of the midline lumbar spine. Nontender over the sciatic notch regions bilaterally Nontender over the greater trochanter regions to palpation bilaterally Negative logrolling bilaterally She has breakaway weakness over the right quadricep otherwise 5 5 bilateral EHL, dorsiflexion, plantarflexion, hamstrings, hip flexors Negative straight leg raising bilaterally Results & Data Vital Signs (Past 12 Hours) Vital Signs Temp Pulse Resp BP Pulse Ox O2 Del Method O2 Flow Rate 07/30/25 07:08 36.9 C 98 H 18 114/75 97 Room Air 07/29/25 23:07 36.7 C 95 H 18 103/61 94 Nasal Cannula 2.0 Diagnostic Findings [facility] JOSEPH Logan [phone] Magnetic Resonance Report Patient: KASIA HOWELL Admit Date: 07/28/25 MR#: [id number] Address1: [address] [place] [address] Acct ID:[id number] Address2: Date: 1955 [facility] Zip: [place] [address] Age: 70 Location: 3N Sex: F Room/Bed: [facility] Att Phy: Alexia Cintron MD Diagnosis: ACUTE LUMBAR RADICULOPATHY Maddie Phy: Jeremie Young CRNP Service Date: 07/29/25 Fam Phy: Interpreting Phy: Morgan PortilloAdmit Phy: Alexia Cintron MD Ordering Phy: Rusty Rodríguez D.O. cc: ~ MR lumbar spine wo con CLINICAL HISTORY: 70 years-old Female with back and leg pain. Chronic low back pain COMPARISON: CT lumbar spine 07/28/2025 TECHNIQUE: Multiplanar, multi sequence MRI of the lumbar spine was performed without intravenous contrast. FINDINGS: Motion degraded exam. The lumbar alignment is normal. The vertebral body heights are normal. There is no T1 fracture line or marrow replacement process. The conus terminates at L1-L2. The visualized spinal cord and cauda equina are normal. There is no paraspinal edema, mass, or prevertebral fluid collection. Colonic diverticulosis. Mostly mild multilevel intervertebral disc space narrowing and spondylotic spurring with mild to moderate facet arthrosis. T12-L1: No central canal or neural foraminal stenosis. L1-L2: No central canal or neural foraminal stenosis. L2-L3: No central canal or neural foraminal stenosis. L3-L4: Mild intervertebral disc space narrowing and circumferential annular disc bulge and mild spondylitic spurring. Ligamentum flavum thickening with trace facet effusions and mild to moderate facet arthrosis. Mild central canal stenosis with AP dimension of the thecal sac measuring 9 mm. The right neural foramen is patent. Mild left neural foraminal stenosis. L4-L5: Mild intervertebral disc space narrowing with circumferential annular disc bulge and mild spondylitic spurring. Ligament of thickening with moderate facet arthrosis. 8 x 5 x 7 mm ill-defined T1 and T2 hypointense structure within the right neural foramen, image 20 series 7 with superior migration on image 6 series 2 is suggestive of a disc extrusion contributing to cause moderate right foraminal narrowing. Mild central canal stenosis, AP dimension of the thecal sac measuring 9 mm. Mild left neural foraminal narrowing. L5-S1: Moderate intervertebral disc space narrowing with small circumferential disc osteophyte complex and moderate facet arthrosis. 1.3 x 0.4 cm central disc osteophyte complex on image 29 series 7. Mild bilateral neural foraminal stenosis. IMPRESSION: 1. Motion degraded exam without acute fracture or bone marrow edema. 2. Probable disc extrusion within the right neural foramen at L4-L5, correlating with the abnormality seen on comparison CT causing moderate associated foraminal stenosis. 3. Mild central canal stenosis at L3-L4 and L4-L5. ACT 112: Negative or not required by law. The above report was generated using voice recognition software. It may contain grammatical, syntax or spelling errors. Electronically signed by: Morgan Portillo M.D. 07/29/2025 2:14 PM Dictated: 07/29/25 1406 Transcribed: 07/29/25 1406 [place], [place] [phone] CT Scan Report Patient: KASIA HOWELL Admit Date: 07/28/25 MR#: [id number] Address1: [address] [place] [address] Acct ID:[id number] Address2: Date: 1955 [facility] Zip: [place] [address] Age: 70 Location: ED Sex: F Room/Bed: Att Phy: Diagnosis: BACK/HIP PAIN Maddie Phy: Jeremie Young CRNP Service Date: 07/28/25 [facility] Phy: Interpreting Phy: Jorge Santos MDAdmit Phy: Ordering Phy: Brigette Newell PA cc: ~ CT OF THE LUMBAR SPINE CLINICAL HISTORY: RIGHT LBP RADIATING INTO RIGHT THIGH COMPARISON STUDY: No previous studies for comparison. TECHNIQUE: Helical axial images of the lumbar spine were obtained. Sagittal and coronal reconstructions were viewed. Automated exposure control was utilized for the study. A dose lowering technique was utilized adhering to the principles of ALARA. FINDINGS: For purposes of numbering on this exam, the L5-S1 disc space is assigned to axial image 311 of 362. Alignment of the lumbar spine is anatomic. Vertebral body heights are maintained. There are no fractures. There are no suspicious osseous lesions. Paravertebral soft tissues are unremarkable. The central canal and neural foramen are suboptimally assessed given CT technique. There is severe disc space narrowing at L5-S1. Moderate multilevel facet arthrosis is present. There are disc bulges at multiple levels. L1-L2: The central canal and neural foramen are patent. L2-L3: The central canal and neural foramen are patent. L3-L4: There is mild disc bulge. There is mild facet arthrosis with ligamentous hypertrophy. There is mild narrowing of the central canal and neural foramen. L4-L5: There is mild disc space narrowing with disc bulge. There is facet arthrosis with ligamentous hypertrophy. There is suspected mild central canal stenosis. A suspected right foraminal disc protrusion is present. There is moderate narrowing of the right lateral recess and right neural foramen. The left neural foramen is patent. L5-S1: There is severe disc space narrowing. Posterior disc osteophyte complex is present. There is facet arthrosis. There is no central canal stenosis. There is mild bilateral neural foraminal stenosis. IMPRESSION: 1. No acute lumbar spine fracture or subluxation. 2. Mild degenerative disc disease and moderate multilevel facet arthrosis within the lumbar spine. Suboptimal evaluation of the central canal and neural foramen given CT technique. No evidence for severe central canal stenosis. 3. Suspected right foraminal disc protrusion at L4-L5 which results in moderate of the right lateral recess and right neural foramen. This could be correlated with right L4/L5 radiculopathy. ACT 112: Negative or not required by law. Electronically signed by: Jorge Santos M.D. 07/28/2025 11:41 AM Dictated: 07/28/25 1134 Transcribed: 07/28/25 1134 Document Auto-Saved
--- NOTE | 2025-07-30 11:53 | Hospitalist Progress Note ---
Date of Service July 30, 2025 Assessment & Plan (1) Lumbar radiculopathy, acute: (2) Lower back pain: (3) Ambulatory dysfunction: (4) Tardive dyskinesia: Plan This patient is a 70-year-old female with a history of tardive dyskinesia, MCI, ADD, depression/anxiety, GERD, HTN, HLD, who is admitted with intractable pain from acute lumbar radiculopathy pain with ambulatory dysfunction. #Acute lumbar radiculopathy/intractable right sided lower back pain/ambulatory dysfunction-failed outpatient treatment and now with mild improvement w/ parenteral steroids and opioids, po opioids, NSAIDs, APAP. CT lumbar spine with HNP L4-L5 which could be the cause of her symptoms. MRI L-spine with L4-5 HNP/disc extrusion causing moderate right NF narrowing, mild spinal canal stenosis L3-5. Ortho SPine consult appreciated-recommend Pain Man injection - Continue IV Decadron 6 mg IV 3 times daily today, then switch to Medrol dose pack 07/31 - Continue Tylenol 1000 mg p.o. 3 times daily scheduled, po oxycodone, and IV Dilaudid for breakthrough pain -dc Mobic for upcoming Pain Man injection -considered gabapentin but may worsen her tardive dyskinesia - Zofran as needed for nausea and continue PPI while on NSAIDs and steroids for GI protection - PT/OT consults recommend rehab #Hypoxemia-mild, requring 2LNC-was from sedation, likely atelectasis after receiving IV opioids and benzo for MRI -asaked RN to wean off O2 #Constipation-related to immobility, opioids -give Miralax prn #Tardive dyskinesia no acute issues, follows with neurology - Continue home ropinirole #Depression/anxiety/ADD/MCI-has evaluation planned for neuropsychology 6 months from now. Follows with psychiatry - Continue home BuSpar, hydroxyzine, sertraline, and Adderall #HTN/HLD-no acute issues - Continue home amlodipine, rosuvastatin, and hold home fish oil, co-Q10 #GERD-no acute issues - Continue PPI DVT prophylaxis-SCDs Disposition-continued stay on medical/surgical floor Admission and Anticipated Discharge Date Admission Date: July 28, 2025 Subjective Pain is better controlled with the po oxycodone-seems to last longer-pain in back and down RLE was a 10/10 and down to a 5/10 after oxy 10mg. Lasted 3 hours and now pain creeping back up. She is agreeable to Pain Man injection and agreeable to rehab placement Denies any other concerns. No BM since admission. Remains on O2 2LNC Physical Exam Constitutional: WD/WN, vitals as above Neck: trachea midline, no thyromegaly Respiratory: normal respiratory effort, lungs clear to auscultation Cardiovascular: RRR, no murmur, no edema Chest (Breasts): Chest: normal inspection of chest Musculoskeletal: Extremities: extremities normal to inspection; no cyanosis and no clubbing Skin: no rashes, warm and dry Neurologic: moves all extremities and awake; no focal motor deficits Motor/Sensory: + abnormal movement (Has occasional jerking movements of upper and lower extremities and head) Psychiatric: A+Ox3, euthymic affect Lymphatic: no lymphedema Results & Data Results & Data Vital Signs (Past 12 Hours) Vital Signs Temp Pulse Resp BP Pulse Ox O2 Del Method O2 Flow Rate 07/30/25 10:38 Nasal Cannula 2 07/30/25 07:08 36.9 C 98 H 18 114/75 97 Room Air Diagnostic Findings MRI lumbar spine reviewed PG Care Time/CCT Total # of Minutes Spent Total Time Spent with Patient: Total time spent is greater than 50% in coordination of care (as documented) at patient's floor/unit and/or counseling patient: Coding Level of Care Code 76054 SUB INP/OBS CARE 2/35MIN Diagnoses Lumbar radiculopathy, acute M54.16 Lower back pain M54.50 Ambulatory dysfunction R26.2 Tardive dyskinesia G24.01
[2025-07-31] MEDS: POLYETHYLENE (MIRALAX) 17 GM PACK PO PRN (08:07)
[2025-07-31] MEDS ORDERED: methylPREDNISolone 4 MG TAB, 6 DAY TAPER PO SCH (08:15)
[2025-07-31] MEDS: methylPREDNISolone 4 MG TAB PO SCH ×2 (08:57→13:06)
--- NOTE | 2025-07-31 08:58 | Pain Management Consultation ---
Date of Consultation July 31, 2025 Assessment & Plan (1) Lumbar back pain with radiculopathy affecting right lower extremity: (2) Lumbar herniated disc: (3) Ambulatory dysfunction: (4) Lumbar radiculopathy, acute: Plan 1. Recommend that she continue with Medrol Dosepak 2. I did I had methocarbamol 750 mg 3 times daily for any myofascial component. 3. We did discuss the lumbar MRI and there is a small disc extrusion at L4-L5 that is likely contributing to her pain. We did discuss pursuing an outpatient lumbar epidural steroid injection as this cannot be facilitated on an inpatient basis. She is welcome to become established to the [facility] pain service on discharge. 4. Recommend continuation of physical therapy. 5. Patient does have oxycodone to take if needed as well as IV Dilaudid for breakthrough pain. 6. If the above is not effective towards diminishing her pain, she will consider surgical intervention. Plan of care was discussed with the patient and she is understanding. Will sign off on the patient. Please contact with any questions or concerns. History of Present Illness Attending Physician: Alexia Cintron MD History of Present Illness This is a 70-year-old female that has been admitted to the [facility] for lumbar radiculopathy and intractable back pain. Patient states that the pain started abruptly on 07/27/2025 without any specific injury. She describes a constant deep aching pain along the right low back, right gluteal region, going into the right groin, anterior thigh, lateral thigh and along the lateral aspect of the calf. She states that weightbearing does significantly worsen her pain. She is able to walk to the bathroom with the aid of a walker. She rates her pain a 10/10 currently. She does find some pain relief with bending the right knee and elevating it. She was evaluated by [place] [facility] and discussed pursuing an injection prior to any consideration of surgical intervention. Current medication regimen includes Medrol pack, oxycodone, and IV Dilaudid. She does plan to be discharged to rehab, likely [facility]. Patient denies any bowel/bladder incontinence, saddle anesthesia, foot drop, leg weakness. She did have a fall on her driveway last month, no significant injury. Case discussed with Dr. Sonia Irwin Allergies Allergy/AdvReac Type Severity Reaction Status Date / Time Sulfa (Sulfonamide Allergy Unknown Rash Verified 07/28/25 14:35 Antibiotics) Home Medications Medication Instructions Recorded Confirmed Type omega 9-pjc-ckv-fish oil 300 1 cap PO QAM 06/23/22 07/28/25 History mg-1,000 mg capsule (Fish Oil) elndlodh-fqx-nltbm acid 500 1 tab PO QAM 04/26/23 07/28/25 History mcg-lycopene 300 mcg-lutein 250 mcg tablet ([employer]) acetaminophen 325 mg tablet 325 mg PO QID PRN Pain 08/28/23 07/28/25 History (Tylenol) sertraline 50 mg tablet 50 mg PO QAM 08/28/23 07/28/25 History sertraline 100 mg tablet 100 mg PO QAM 08/14/24 07/28/25 History ascorbate calcium (vitamin C) 500 500 mg PO DAILY 12/19/24 07/28/25 History mg tablet cholecalciferol (vitamin D3) 25 25 mcg PO DAILY 12/19/24 07/28/25 History mcg (1,000 unit) capsule ferrous sulfate 325 mg (65 mg 325 mg PO DAILY 12/19/24 07/28/25 History iron) tablet (Feosol) vitamin K2 45 mcg capsule 45 mcg PO DAILY 12/19/24 07/28/25 History magnesium oxide 400 mg PO QAM #90 caps 03/13/25 07/28/25 Rx hydroxyzine HCl 25 mg tablet 25 mg PO TID 04/01/25 07/28/25 History omeprazole 20 mg capsule,delayed 20 mg PO QAM #90 caps 05/05/25 07/28/25 Rx release amlodipine 10 mg tablet 10 mg PO HS #90 tabs 06/02/25 07/28/25 Rx meloxicam 15 mg tablet 15 mg PO QAM #90 tabs 06/09/25 07/28/25 Rx rosuvastatin 10 mg tablet 10 mg PO HS 100 days #90 tabs 06/19/25 07/28/25 Rx dextroamphetamine-amphetamine 10 10 mg PO BID 07/03/25 07/28/25 History mg tablet ropinirole 0.5 mg tablet 0.5 mg PO TID #90 tabs 07/03/25 07/28/25 Rx buspirone 15 mg tablet 15 mg PO BID 07/28/25 07/28/25 History Patient History Medical History Nausea and vomiting after administration of anesthetic agent Hiatal hernia Diverticular disease History of COVID-07 Apr 2022 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) Surgical History History of dilatation and curettage H/O tooth extraction implanted tooth removed 11/2022 History of colonoscopy History of endoscopy History of cataract extraction bilat History of lumpectomy of right breast benign Hx of tonsillectomy Family History Sister Breast cancer x2 Heart disease Hypertension Lung cancer Skin cancer Father Colorectal cancer Myocardial infarction Heart disease Stroke Brother Myocardial infarction Heart disease Hypertension Leukemia Brother Acute leukemia Heart disease Mother Heart disease Skin cancer Aunt Stroke paternal Brain cancer paternal Grandmother (Maternal) Breast cancer Family/Other Breast cancer niece Uncle Throat cancer paternal Other No family history of adverse response to anesthesia No family history of bleeding disorder Denies family history of Ovarian cancer Prostate cancer Social History Smoking Status: Never smoker Second Hand Exposure: No; Do You Dip or Chew Tobacco: No; Tobacco Cessation Education Requested by Patient: No Hx Alcohol Use: No Hx Substance Use: No Preferred Language: Korean Communication Ability: Effective Visual Impairment: Partially Limited Hearing Ability: Normal Chief Operator Synthesis Required: No Beliefs That Will Affect Care: Restorationist Restorationist Beliefs: Will not affect care, but she is Shinto/Holiness marital status: Current Living Situation: Spouse current occupational status: retired current occupation: Retired Teacher How many Children do You have: 1 How many Children do You have Comment: 1 boy Feels Safe at Home: Yes Safety Concerns: Feels Safe At This Time Childhood Exposure to Second-Hand Smoke: No Diet: regular Diet Comment: regular caffeine: Yes during the past year weight has: remained stable Dental Care, Regularly: Yes Physical Activity Frequency: 3-4 Times per Week Physical Activity Frequency Comment: stationary bike Seatbelt Use: always Sunscreen Use: Yes Assistive Devices: None Assistive Devices Comment: Hearing aids not present Physical Exam Physical Exam: GENERAL: This is a 70-year-old female in no acute distress. HEAD/FACE: Normocephalic and atraumatic. EYES: No drainage or conjunctival injection. ENT: Nose without bleeding or discharge. Oral mucosa moist. NECK: Full ROM without apparent pain. No swelling or masses noted. RESPIRATORY: Patient with unlabored breathing. No signs of respiratory distress. CHEST/AXILLA: Chest movement symmetrical. No deformities noted. ABDOMEN/GI: No distension BACK: Moves without difficulty. Normal lumbar lordosis. No midline, facet joint, SI joint tenderness. No myofascial spasm or trigger points noted. SKIN: [place], warm and dry. No rash noted. MS/EXTREMITY: 5/5 strength of the lower extremities. Full range of motion of the right hip. No tenderness of the greater trochanteric bursa. NEURO: Alert and appears oriented. Speech is fluent. Cranial Nerves are grossly intact. PSYCH: Alert, pleasant, affect is calm Results (Pain Clinic) Diagnostic Review MRI Findings: MR lumbar spine wo con CLINICAL HISTORY: 70 years-old Female with back and leg pain. Chronic low back pain COMPARISON: CT lumbar spine 07/28/2025 TECHNIQUE: Multiplanar, multi sequence MRI of the lumbar spine was performed without intravenous contrast. FINDINGS: Motion degraded exam. The lumbar alignment is normal. The vertebral body heig hts are normal. There is no T1 fracture line or marrow replacement process. The conus terminates at L1-L2. The visualized spinal cord and cauda equina are normal. There is no paraspinal edema, mass, or prevertebral fluid collection. Colonic diverticulosis. Mostly mild multilevel intervertebral disc space narrowing and spondylotic spurring with mild to moderate facet arthrosis. T12-L1: No central canal or neural foraminal stenosis. L1-L2: No central canal or neural foraminal stenosis. L2-L3: No central canal or neural foraminal stenosis. L3-L4: Mild intervertebral disc space narrowing and circumferential annular disc bulge and mild spondylitic spurring. Ligamentum flavum thickening with trace facet effusions and mild to moderate facet arthrosis. Mild central canal stenosis with AP dimension of the thecal sac measuring 9 mm. The right neural foramen is patent. Mild left neural foraminal stenosis. L4-L5: Mild intervertebral disc space narrowing with circumferential annular disc bulge and mild spondylitic spurring. Ligament of thickening with moderate facet arthrosis. 8 x 5 x 7 mm ill-defined T1 and T2 hypointense structure within the right neural foramen, image 20 series 7 with superior migration on image 6 series 2 is suggestive of a disc extrusion contributing to cause moderate right foraminal narrowing. Mild central canal stenosis, AP dimension of the thecal sac measuring 9 mm. Mild left neural foraminal narrowing. L5-S1: Moderate intervertebral disc space narrowing with small circumferential disc osteophyte complex and moderate facet arthrosis. 1.3 x 0.4 cm central disc osteophyte complex on image 29 series 7. Mild bilateral neural foraminal stenosis. IMPRESSION: 1. Motion degraded exam without acute fracture or bone marrow edema. 2. Probable disc extrusion within the right neural foramen at L4-L5, correlating with the abnormality seen on comparison CT causing moderate associated foraminal stenosis. 3. Mild central canal stenosis at L3-L4 and L4-L5. ACT 112: Negative or not required by law. The above report was generated using voice recognition software. It may contain grammatical, syntax or spelling errors. Electronically signed by: Morgan Portillo M.D. 07/29/2025 2:14 PM
[2025-07-31] MEDS: METHOCARBAMOL 750 MG TABLET PO SCH (10:09)
--- NOTE | 2025-07-31 15:59 | Hospitalist Progress Note ---
Date of Service July 31, 2025 Assessment & Plan (1) Lumbar radiculopathy, acute: (2) Lower back pain: (3) Ambulatory dysfunction: (4) Tardive dyskinesia: Plan This patient is a 70-year-old female with a history of tardive dyskinesia, MCI, ADD, depression/anxiety, GERD, HTN, HLD, who is admitted with intractable pain from acute lumbar radiculopathy pain with ambulatory dysfunction. #Acute lumbar radiculopathy/intractable right sided lower back pain/ambulatory dysfunction-failed outpatient treatment and now with mild improvement w/ parenteral steroids and opioids, po opioids, NSAIDs, APAP. CT lumbar spine with HNP L4-L5 which could be the cause of her symptoms. MRI L-spine with L4-5 HNP/disc extrusion causing moderate right NF narrowing, mild spinal canal stenosis L3-5. Ortho SPine consult appreciated-recommend Pain Man injection - Change IV Decadron 6 mg IV 3 times daily today to Medrol dose pack 07/31 - Continue Tylenol 1000 mg p.o. 3 times daily scheduled, po oxycodone, and IV Dilaudid for breakthrough pain -dcd Mobic for upcoming Pain Man injection -considered gabapentin but may worsen her tardive dyskinesia - Appreciate pain management consultation-plan for outpatient steroid injection/SOHAN and started methocarbamol scheduled - Zofran as needed for nausea and continue PPI while on NSAIDs and steroids for GI protection - PT/OT consults recommend rehab-awaiting placement #Hypoxemia-mild, requiring 2LNC-was from sedation, likely atelectasis after receiving IV opioids and benzo for MRI. Now resolved #Constipation-related to immobility, opioids, ongoing - Continue MiraLAX as needed - Add scheduled docusate/Senokot 17.2 mg/100 daily - Nurse will give warm prune juice with butter melted #Tardive dyskinesia no acute issues, follows with neurology - Continue home ropinirole #Depression/anxiety/ADD/MCI-has evaluation planned for neuropsychology 6 months from now. Follows with psychiatry - Continue home BuSpar, hydroxyzine, sertraline, and Adderall #HTN/HLD-no acute issues - Continue home amlodipine, rosuvastatin, and hold home fish oil, co-Q10 #GERD-no acute issues - Continue PPI DVT prophylaxis-SCDs Disposition-continued stay on medical/surgical floor, medically stable for discharge but awaiting insurance authorization for [facility] rehab Admission and Anticipated Discharge Date Admission Date: July 30, 2025 Subjective Patient was still having 10 out of 10 pain this morning but it is settled down to a 5 out of 10 after adding the muscle relaxer in addition to the oxycodone. She did take 1 dose of IV Dilaudid. Still no bowel movement since admission. She was able to ambulate about 10 feet around the end of her bed using the walker and only bearing weight on the left lower extremity but then had to call for help to get back to bed Physical Exam Constitutional: WD/WN, vitals as above Neck: trachea midline, no thyromegaly Respiratory: normal respiratory effort, lungs clear to auscultation Cardiovascular: RRR, no murmur, no edema Chest (Breasts): Chest: normal inspection of chest Gastrointestinal (Abdomen): normal bowel sounds, soft, nontender, no hepatosplenomegaly Skin: no rashes, warm and dry Psychiatric: A+Ox3, euthymic affect Results & Data Results & Data Vital Signs (Past 12 Hours) Vital Signs Temp Pulse Resp BP Pulse Ox O2 Del Method 07/31/25 15:23 36.6 C 67 16 111/70 93 Room Air 07/31/25 07:44 36.2 C L 74 16 116/70 94 Room Air PG Care Time/CCT Total # of Minutes Spent Total Time Spent with Patient: Total time spent is greater than 50% in coordination of care (as documented) at patient's floor/unit and/or counseling patient: Coding Level of Care Code 96719 SUB INP/OBS CARE 2/35MIN Diagnoses Lumbar radiculopathy, acute M54.16 Lower back pain M54.50 Ambulatory dysfunction R26.2 Tardive dyskinesia G24.01
[2025-07-31] MEDS: DOCUSATE SODIUM/SENNA 50/8.6MG TAB PO SCH (16:46)
[2025-08-01] MEDS: methylPREDNISolone 4 MG TAB PO SCH ×2 (06:08→20:40)
--- NOTE | 2025-08-01 14:40 | Hospitalist Progress Note ---
Date of Service August 01, 2025 Assessment & Plan (1) Lumbar radiculopathy, acute: (2) Lower back pain: (3) Ambulatory dysfunction: (4) Constipation: Plan This patient is a 70-year-old female with a history of tardive dyskinesia, MCI, ADD, depression/anxiety, GERD, HTN, HLD, who is admitted with intractable pain from acute lumbar radiculopathy pain with ambulatory dysfunction. #Acute lumbar radiculopathy/intractable right sided lower back pain/ambulatory dysfunction-failed outpatient treatment and now with mild improvement w/ parenteral steroids and opioids, po opioids, NSAIDs, APAP. CT lumbar spine with HNP L4-L5 which could be the cause of her symptoms. MRI L-spine with L4-5 HNP/disc extrusion causing moderate right NF narrowing, mild spinal canal stenosis L3-5. Ortho SPine consult appreciated-recommend Pain Man injection initially. Continues to have severe pain down right lower extremity with trying to ambulate. - Received IV Decadron 6 mg IV 3 times daily and then changed to Medrol dose pack 07/31 to finish out 6-day course - Continue Tylenol 1000 mg p.o. 3 times daily scheduled, po oxycodone, and IV Dilaudid for breakthrough pain -dcd home daily Mobic for upcoming Pain Man injection -considered gabapentin but may worsen her tardive dyskinesia - Appreciate pain management consultation-plan for outpatient steroid injection/SOHAN and started methocarbamol scheduled - Zofran as needed for nausea and continue PPI while on NSAIDs and steroids for GI protection - PT/OT consults recommend rehab-awaiting placement #Hypoxemia-mild, requiring 2LNC-was from sedation, likely atelectasis after receiving IV opioids and benzo for MRI. Now resolved #Constipation-ongoing, now with 1 episode of nausea/vomiting on 08/01, abdomen remains soft and nontender. Constipation related to immobility, opioids - Change MiraLAX to scheduled 17 g p.o. twice daily - Increase docusate/Senokot to 1 tab p.o. twice daily - Give bisacodyl 10 mg [place] x 1 now #Tardive dyskinesia no acute issues, follows with neurology - Continue home ropinirole #Depression/anxiety/ADD/MCI-very stable, no acute issues. Has repeat evaluation planned for neuropsychology 6 months from now. Follows with psychiatry - Continue home BuSpar, hydroxyzine, sertraline, and Adderall #HTN/HLD-no acute issues - Continue home amlodipine, rosuvastatin, and hold home fish oil, co-Q10 #GERD-no acute issues - Continue PPI DVT prophylaxis-SCDs Disposition-continued stay on medical/surgical floor, medically stable for discharge but awaiting insurance authorization for [facility] rehab Admission and Anticipated Discharge Date Admission Date: July 30, 2025 Subjective Patient reports she threw up after breakfast after taking oxycodone. She also has not moved her bowels in at least for 5 days. She keeps trying but cannot get anything out. She can barely put any pressure on her right lower extremity when walking with PT. She is currently having 10 out of 10 pain after working with physical therapy down the right lower extremity. She had to take IV Dilaudid. Otherwise denies chest pain or shortness of breath. No other concerns. She is voiding without difficulty Physical Exam Constitutional: WD/WN, vitals as above Neck: trachea midline, no thyromegaly Respiratory: normal respiratory effort, lungs clear to auscultation Cardiovascular: RRR, no murmur, no edema Chest (Breasts): Chest: normal inspection of chest Gastrointestinal (Abdomen): normal bowel sounds, soft, nontender, no hepatosplenomegaly Musculoskeletal: Extremities: extremities normal to inspection; no cyanosis and no clubbing Skin: no rashes, warm and dry Neurologic: moves all extremities and awake; no focal motor deficits Psychiatric: A+Ox3, euthymic affect Lymphatic: no lymphedema Results & Data Results & Data Vital Signs (Past 12 Hours) Vital Signs Temp Pulse Resp BP Pulse Ox O2 Del Method 08/01/25 08:42 Room Air 08/01/25 08:05 36.6 C 80 18 110/59 L 93 Room Air PG Care Time/CCT Total # of Minutes Spent Total Time Spent with Patient: Total time spent is greater than 50% in coordination of care (as documented) at patient's floor/unit and/or counseling patient: Coding Level of Care Code 21953 SUB INP/OBS CARE 12/14MIN Diagnoses Lumbar radiculopathy, acute M54.16 Lower back pain M54.50 Ambulatory dysfunction R26.2 Constipation K59.00
[2025-08-01] MEDS: DOCUSATE SODIUM/SENNA 50/8.6MG TAB PO SCH (20:33)
[2025-08-01] MEDS: POLYETHYLENE (MIRALAX) 17 GM PACK PO SCH (20:34)
[2025-08-02] MEDS: methylPREDNISolone 4 MG TAB PO SCH (06:22)
[2025-08-02 07:10] VITALS: BP 120/72; PULSE 69; RESP 16; TEMP 98.1; O2SAT 94
--- NOTE | 2025-08-02 09:58 | Hospitalist Progress Note ---
Date of Service August 02, 2025 Assessment & Plan (1) Lumbar radiculopathy, acute: (2) Lower back pain: (3) Ambulatory dysfunction: (4) Constipation: Plan This patient is a 70-year-old female with a history of tardive dyskinesia, MCI, ADD, depression/anxiety, GERD, HTN, HLD, who is admitted with intractable pain from acute lumbar radiculopathy pain with ambulatory dysfunction. #Acute lumbar radiculopathy/intractable right sided lower back pain/ambulatory dysfunction-failed outpatient treatment and now with mild improvement w/ parenteral steroids and opioids, po opioids, NSAIDs, APAP. CT lumbar spine with HNP L4-L5 which could be the cause of her symptoms. MRI L-spine with L4-5 HNP/disc extrusion causing moderate right NF narrowing, mild spinal canal stenosis L3-5. Ortho SPine consult appreciated-recommend Pain Man injection initially. Continues to have severe pain down right lower extremity with trying to ambulate. - Received IV Decadron 6 mg IV 3 times daily and then changed to Medrol dose pack 07/31 to finish out 6-day course-has not made much difference - Continue Tylenol 1000 mg p.o. 3 times daily scheduled, po oxycodone, and IV Dilaudid for breakthrough pain -dcd home daily Mobic for upcoming Pain Man injection - Will now trial low-dose gabapentin 100 mg p.o. twice daily and watch for worsening of tardive dyskinesia - Appreciate pain management consultation-plan for outpatient steroid injection/SOHAN and started methocarbamol scheduled - Zofran as needed for nausea and continue PPI while on NSAIDs and steroids for GI protection - PT/OT consults recommend rehab-awaiting placement #Hypoxemia-mild, requiring 2LNC-was from sedation, likely atelectasis after receiving IV opioids and benzo for MRI. Now resolved #Constipation-remains ongoing, now with 1 episode of nausea/vomiting on 08/01, abdomen remains soft and nontender. Constipation related to immobility, opioids - Continue MiraLAX scheduled 17 g p.o. twice daily - Continue docusate/Senokot to 1 tab p.o. twice daily - Give bisacodyl 10 mg [place] x 1 again now - Give milk of magnesia x 1 #Tardive dyskinesia no acute issues, follows with neurology - Continue home ropinirole - Monitor for any worsening with starting gabapentin #Depression/anxiety/ADD/MCI-very stable, no acute issues. Has repeat evaluation planned for neuropsychology 6 months from now. Follows with psychiatry - Continue home BuSpar, hydroxyzine, sertraline, and Adderall #HTN/HLD-no acute issues - Continue home amlodipine, rosuvastatin, and hold home fish oil, co-Q10 #GERD-no acute issues - Continue PPI DVT prophylaxis-SCDs Disposition-continued stay on medical/surgical floor, medically stable for discharge but awaiting insurance authorization for [facility] rehab Admission and Anticipated Discharge Date Admission Date: July 30, 2025 Subjective Patient continues to have severe pain down the right leg to the knee and sometimes feels like her right knee is about to explode. Feels numbness down through the rest of the right leg to the foot. Is barely able to put any weight on the right lower extremity with walking with the walker. Still no bowel movement since before admission except a very small 1 after receiving bisacodyl suppository on 08/01. Physical Exam Constitutional: WD/WN, vitals as above Neck: trachea midline, no thyromegaly Respiratory: normal respiratory effort, lungs clear to auscultation Cardiovascular: RRR, no murmur, no edema Chest (Breasts): Chest: normal inspection of chest Gastrointestinal (Abdomen): normal bowel sounds, soft, nontender, no hepatosplenomegaly Musculoskeletal: Extremities: extremities normal to inspection; no cyanosis and no clubbing Skin: no rashes, warm and dry Neurologic: moves all extremities and awake; no focal motor deficits [place] sensation to touch in the right leg Psychiatric: A+Ox3, euthymic affect Lymphatic: no lymphedema Results & Data Results & Data Vital Signs (Past 12 Hours) Vital Signs Temp Pulse Resp BP Pulse Ox O2 Del Method 08/02/25 07:09 36.7 C 69 16 120/72 94 Room Air 08/01/25 23:23 36.5 C 66 18 118/74 93 Room Air PG Care Time/CCT Total # of Minutes Spent Total Time Spent with Patient: Total time spent is greater than 50% in coordination of care (as documented) at patient's floor/unit and/or counseling patient: Coding Level of Care Code 55993 SUB INP/OBS CARE 2/35MIN Diagnoses Lumbar radiculopathy, acute M54.16 Lower back pain M54.50 Ambulatory dysfunction R26.2 Constipation K59.00
[2025-08-02] MEDS: MAGNESIUM HYDROXIDE SUSP 30 ML UDC PO ONE (10:39)
[2025-08-02] MEDS: GABAPENTIN 100 MG CAP PO SCH (10:43)
--- NOTE | 2025-08-02 11:40 | Discharge Summary ---
Discharge Summary Date of Service August 02, 2025 Principal Dx & Hospital Course #1 = Principal Diagnosis (1) Lumbar radiculopathy, acute: (2) Lower back pain: (3) Ambulatory dysfunction: (4) Constipation: Plan This patient is a 70-year-old female with a history of tardive dyskinesia, MCI, ADD, depression/anxiety, GERD, HTN, HLD, who is admitted with intractable pain from acute lumbar radiculopathy pain with ambulatory dysfunction. #Acute lumbar radiculopathy/intractable right sided lower back pain/ambulatory dysfunction-failed outpatient treatment and now with mild improvement w/ parenteral steroids and opioids, po opioids, NSAIDs, APAP. CT lumbar spine with HNP L4-L5 which could be the cause of her symptoms. MRI L-spine with L4-5 HNP/disc extrusion causing moderate right NF narrowing, mild spinal canal stenosis L3-5. Ortho SPine consult appreciated-recommend Pain Man injection initially. Continues to have severe pain down right lower extremity with trying to ambulate. - Received IV Decadron 6 mg IV 3 times daily and then changed to Medrol dose pack 07/31 to finish out 6-day course-has not made much difference-finish out 4 more days of steroid - Continue Tylenol 1000 mg p.o. 3 times daily scheduled, po oxycodone as needed moderate-severe pain -dcd home daily Mobic for upcoming Pain Man injection - Will now trial low-dose gabapentin 100 mg p.o. twice daily and watch for worse martine of tardive dyskinesia-can uptitrate gabapentin as needed - Appreciate pain management consultation-plan for outpatient steroid injection/SOHAN and also day started scheduled methocarbamol 750 mg p.o. 3 times daily - continue PPI while on steroids for GI protection - PT/OT consults recommend rehab-plan for acute rehab placement #Hypoxemia-mild, requiring 2LNC-was from sedation, likely atelectasis after receiving IV opioids and benzo for MRI. Now resolved but monitor for this at the rehab especially after adding gabapentin #Constipation-remains ongoing, now with 1 episode of nausea/vomiting on 08/01, abdomen remains soft and nontender. Constipation related to immobility, opioids - Continue MiraLAX scheduled 17 g p.o. twice daily - Continue docusate/Senokot to 1 tab p.o. twice daily - Gave bisacodyl 10 mg UT x 1 again on 08/02 - Gave milk of magnesia x 1 #Tardive dyskinesia no acute issues, follows with neurology - Continue home ropinirole - Monitor for any worsening with starting gabapentin #Depression/anxiety/ADD/MCI-very stable, no acute issues. Has repeat evaluation planned for neuropsychology 6 months from now. Follows with psychiatry - Continue home BuSpar, hydroxyzine, sertraline, and Adderall #HTN/HLD-no acute issues - Continue home amlodipine, rosuvastatin, and hold home fish oil, co-Q10 until after spinal injection as fish oil is a blood thinner #GERD-no acute issues - Continue PPI DVT prophylaxis-SCDs Disposition-stable for discharge to acute rehab at [facility] Notes For Next Care Provider Needs pain management spinal injection arranged Follow-up with orthopedic spine surgery if pain management injection not helping Monitor for worsening of tar dive dyskinesia with starting gabapentin Medication Changes From Visit See list Admission HPI Per Admitting Provider This patient is a 70-year-old female with a history of tardive dyskinesia, MCI, ADD, depression/anxiety, GERD, HTN, HLD, who presents with acute onset of right lower back pain radiating down the right lower extremity to the right thigh/knee that came on 3 days ago and got much worse in the last day. She has not been able to stand upright. Bending over makes it better. Her right lower extremity has been buckling when she tries to weight-bear but she is able to move the leg. At home she tried Bengay, Excedrin Migraine, Tylenol, ice, and heat. She takes meloxicam chronically anyway. She did have a fall over 1 month ago. No bowel or bladder issues, no numbness tingling or paresthesias down the right lower extremity. In the ED, she received IV Decadron, IV fentanyl, IV Toradol, and IV morphine as well as IV Tylenol and Zofran for nausea. She was still unable to ambulate after this pain control and will be admitted for intractable lumbar radiculopathy pain with ambulatory dysfunction. Discharge Exam Constitutional WD/WN, vitals as above Neck trachea midline, no thyromegaly Respiratory normal respiratory effort, lungs clear to auscultation Cardiovascular RRR, no murmur, no edema Chest (Breasts) Chest: normal inspection of chest Gastrointestinal (Abdomen) normal bowel sounds, soft, nontender, no hepatosplenomegaly Musculoskeletal Extremities: extremities normal to inspection; no cyanosis and no clubbing Skin no rashes, warm and dry Neurologic moves all extremities and awake; no focal motor deficits Has decreased sensation to light touch in the right leg below the knee Psychiatric A+Ox3, euthymic affect Lymphatic no lymphedema Discharge Plan Discharge Items Patient Disposition: Transfer Inpatient Rehab Fac Reason For Visit: ACUTE LUMBAR RADICULOPATHY Discharge Diagnosis: Acute lumbar radiculopathy Opioid-induced constipation Condition on Discharge: Fair Activity: As commented below Lifting: No more than 5 pounds Bathing: No limitations Exercise/Sports: Gradually increase as tolerated Exercise Comment: With PT/OT Non-emergency contact: Primary Care Provider, Surgeon and Pain Management Call non-emergency contact if: you have any medication questions, your symptoms worsen and your pain is not controlled Follow-up/Referrals: Jeremie Young CRNP [Primary Care Provider] - (Follow up within 2 weeks after discharge from rehab) Sonia Irwin DO [Physician] - (Follow-up in 1-2 weeks for steroid injection in the back-this appointment will need to be arranged) Rusty Rodríguez DO [Surgeon] - (Follow-up as needed if pain management spine injection does not improve your pain.) Diet: Regular Addtl Attending Provider Instructions: You were admitted with intractable lumbar radiculopathy pain from herniated disc. You were started on gabapentin and you will need monitoring to look for worsening of your tar dive dyskinesia with this medication. You are also started on oxycodone for pain and a steroid taper. You were seen by pain management who plans to do an injection as an outpatient-this will need to be arranged. You are also seen by the orthopedic spine surgeon who recommends pain management injection and follow-up with the surgeon if the injection does not help your pain. You are having issues with constipation due to the opioid medications and immobility. Please continue on the current bowel regimen and this can be adjusted as needed by the physician at the rehab. Pending Studies at Discharge: No Stand-Alone Forms: My [employer] Skilled Items Patient informed of condition?: Yes DNR: Yes Discharge Level of Care: Acute rehab Communicable Disease: No Discharge Prognosis: Stable Lines: None Urinary Catheter: No Medications and DC Order Prescriptions: New oxycodone 5 mg Tablet 10 mg PO Q4H PRN (Reason: moderate-severe pain) Qty: 30 0RF sennosides-docusate sodium [Senokot-S] 8.6-50 mg Tablet 1 tab PO BID Qty: 60 0RF methylprednisolone 4 mg Tablet 4 mg PO 0700,1300,1800,2100 Qty: 10 0RF Rx Instructions: x 1 day then decrease to 4mg po tid x 1 day then 4mg po bid x 1 day then 4mg po daily x 1 day then STOP gabapentin 100 mg Capsule 100 mg PO BID Qty: 60 0RF acetaminophen [Tylenol Extra Strength] 500 mg Tablet 1,000 mg PO TID 10 Days Qty: 60 0RF methocarbamol 750 mg Tablet 750 mg PO TID Qty: 30 0RF polyethylene glycol 3350 [Miralax] 17 gram Powder In Packet 17 g PO BID Qty: 60 0RF Continued magnesium oxide 400 mg magnesium capsule 400 mg PO QAM Qty: 90 1RF omeprazole 20 mg capsule,delayed release(DR/EC) 20 mg PO QAM Qty: 90 0RF amlodipine 10 mg tablet 10 mg PO HS Qty: 90 1RF rosuvastatin 10 mg tablet 10 mg PO HS 100 Days Qty: 90 3RF Sentry Senior 500-300-250 mcg tablet 1 tab PO QAM dextroamphetamine-amphetamine 10 mg tablet 10 mg PO BID ropinirole 0.5 mg tablet 0.5 mg PO TID Qty: 90 6RF sertraline 100 mg tablet 100 mg PO QAM Rx Instructions: Take w/ 50mg to equal 150mg by mouth every morning. hydroxyzine HCl 25 mg tablet 25 mg PO TID ascorbate calcium (vitamin C) 500 mg tablet 500 mg PO DAILY cholecalciferol (vitamin D3) 25 mcg (1,000 unit) capsule 25 mcg PO DAILY vitamin K2 45 mcg capsule 45 mcg PO DAILY sertraline 50 mg tablet 50 mg PO QAM Rx Instructions: Take w/ 100mg to equal 150mg by mouth every morning. buspirone 15 mg tablet 15 mg PO BID Held meloxicam 15 mg tablet 15 mg PO QAM Qty: 90 2RF Hold Instructions: Resume on 08/16/25. Hold until after your spine injection omega 3-bpr-chh-fish oil [Fish Oil] 300-1,000 mg capsule 1 cap PO QAM Hold Instructions: Resume on 08/16/25. Hold until after spine injection as this can thin the blood ferrous sulfate [Feosol] 325 mg (65 mg iron) tablet 325 mg PO DAILY Hold Instructions: Resume on 08/16/25. Hold until constipation improves Discontinued acetaminophen [Tylenol] 325 mg Tablet 325 mg PO QID PRN (Reason: Pain) Discharge Orders: Discharge Order (Routine); Ordered 08/02/25 Ordered By: Alexia Cintron Admission Data Admit Date/Time: 07/30/25 14:43 Attending Provider: Alexia Cintron Admit Provider: Alexia Cintron Primary Care Provider: Jeremie Young Other Providers: Rusty Rodríguez; Alexia Cintron; [facility]; Josias Collins; Sonia Irwin; Sky Hunt; Mg Fabian; Amna Panda; [facility] Hospital Stay Data Consultations 07/28/25 13:55 ED Decision to Admit Stat 07/28/25 15:47 Consult Orthopedic Spine Surgery Routine 07/30/25 09:26 Consult Pain Management Routine Diagnostic Imagining Performed 07/28/25 10:38 CT lumbar spine wo con Stat 07/29/25 07:51 MR lumbar spine wo con Urgent Pending Results Patient Have Any Pending Studies at Discharge: No Discharge Instructions Given to Patient (Per Discharging Provider) You were admitted with intractable lumbar radiculopathy pain from herniated disc. You were started on gabapentin and you will need monitoring to look for worsening of your tar dive dyskinesia with this medication. You are also started on oxycodone for pain and a steroid taper. You were seen by pain management who plans to do an injection as an outpatient-this will need to be arranged. You are also seen by the orthopedic spine surgeon who recommends pain management injection and follow-up with the surgeon if the injection does not help your pain. You are having issues with constipation due to the opioid medications and immobility. Please continue on the current bowel regimen and this can be adjusted as needed by the physician at the rehab. Total Time Total Time Spent Total Time Spent (In Minutes): 35 minutes Total Time Includes: Examination of the Patient, Discharge Planning and Medication Reconciliation Coding Level of Care Code 17897 INP/OBS DISCH >30 MIN Diagnoses Lumbar radiculopathy, acute M54.16 Lower back pain M54.50 Ambulatory dysfunction R26.2 Constipation K59.00
[2025-08-03] MEDS ORDERED: methylPREDNISolone 4 MG TAB PO SCH (07:00)
[2025-08-04] MEDS ORDERED: methylPREDNISolone 4 MG TAB PO SCH (07:00)
[2025-08-05] MEDS ORDERED: methylPREDNISolone 4 MG TAB PO SCH (07:00)
== END 2025-08-02 12:45 | DRG 552 ==
LOC: SUATTDRO → EDINP 09:53 → ED 09:53 → 3N 15:48